=== PATIENT | male | born 1970 | race African-American/Black ===

== ENCOUNTER 2023-08-29 20:08 | Emergency (ER) | payer MEDICAID ==
[~2023-08-29] VITALS: Ht 182.9 cm; Wt 82.0 kg
[2023-08-29] MEDS ORDERED: PROPOFOL 200MG/20ML VIAL IV ONE (22:00)
[2023-08-29] MEDS: LIDOCAINE HCL 1% 20ML VIAL (Pyxis) INJ INFIL ONE (22:00)
[2023-08-29] MEDS: FENTANYL CITRATE/PF 50MCG/ML 2ML VIAL IV ONE (22:00)
[2023-08-29] MEDS: MORPHINE SULFATE 4 MG/ML CPJ (NOT FOR IM USE) IV ONE (22:57)
[2023-08-29 23:15] VITALS: O2SAT 100
[2023-08-30] MEDS ORDERED: HYDR-4001 MT (00:09)
[2023-08-30] MEDS ORDERED: IBUP-2029 MT (00:09)
[2023-08-30 00:33] VITALS: BP 144/87; PULSE 99; RESP 16; TEMP 98.7
== END 2023-08-30 00:31 | disposition home or self-care (01) ==
LOC: ER 20:08
DX: S82.891A Other fracture of right lower leg, initial encounter for closed fracture (principal); W18.39XA Other fall on same level, initial encounter; Y93.89 Activity, other specified; Y92.89 Other specified places as the place of occurrence of the external cause; Y99.8 Other external cause status
CPT/HCPCS: 73600; 73610; 73620; 96374; 99285; J3010; J2704; J2270; Z7610 ×3; J3490